=== PATIENT | male | born 1945 | race Two or more races ===

== ENCOUNTER 2023-02-02 20:56 | Emergency (ER) | payer OTHER ==
[~2023-02-02] VITALS: Ht 177.8 cm; Wt 67.6 kg
== END 2023-02-03 00:06 | disposition home or self-care (01) ==
LOC: ER 20:56
DX: M25.571 Pain in right ankle and joints of right foot (principal); W18.49XA Other slipping, tripping and stumbling without falling, initial encounter; Y93.89 Activity, other specified; Y92.63 Factory as the place of occurrence of the external cause